=== PATIENT | female | born 1960 | race Caucasian/White ===

== ENCOUNTER → 2019-12-08 | Outpatient (CLI) | payer BC ==
--- NOTE | 2019-12-09 18:47 | ONC ---
[place] [address] RADIATION ONCOLOGY NOTE Name: RUSLAN ARREDONDO Sterling Room: [facility]#: [id number] Admission: 12/08/19 Attend Phys: Wally Harry MD Discharge: Date of : 56 Report #: [id number] THIS REPORT FOR: //name// CC: Wally Padilla MD DATE OF SERVICE: 12/08/2019 [facility] RADIATION ONCOLOGY FOLLOWUP NOTE REFERRING PHYSICIANS: Include Savage Pena MD and Dorinda Mccann MD PRIMARY SITE AND HISTOPATHOLOGY: The patient had a ductal carcinoma in situ of the right breast and she underwent breast conservation therapy. She underwent partial breast radiation with the high dose rate CHRISS applicator to the right lumpectomy bed from 06/08/2018 to 06/15/2018. The patient was prescribed 3400 cGy to the lumpectomy bed in 340 cGy fractions given twice a day using an iridium-192 source. INTERVAL NOTE: The patient denied having any nipple discharge from the right breast. She denied having any nipple discharge from the left breast. She denied having any suspicious palpable masses in the right breast. She denied having any suspicious palpable masses in the left breast. She denied having any upper extremity edema. MEDICATIONS: The patient is taking losartan, hydrochlorothiazide, calcium, and multivitamin. SOCIAL HISTORY: Cigarettes -- The patient does not smoke cigarettes. REVIEW OF SYSTEMS: RESPIRATORY: She was not short of breath. MUSCULOSKELETAL: She had good range of motion in upper extremities. PHYSICAL EXAMINATION: With my nurse, Sarah Kiser, present: VITAL SIGNS: Weight was 344 pounds, blood pressure was 126/74, pulse 61, oxygen saturation was 94%, and respirations 20. LYMPH NODES: She had no cervical, supraclavicular or axillary lymphadenopathy. HEART: Had a regular rate and rhythm without murmur. LUNGS: were clear to auscultation. BREASTS: Right breast had no suspicious palpable masses. Left breast had no suspicious palpable masses. ABDOMEN: Nontender. Spleen was not palpable. [place] [address] RADIATION ONCOLOGY NOTE Name: RUSLAN ARREDONDO Sterling Room: [facility]#: [id number] Admission: 12/08/19 Attend Phys: Wally Harry MD Discharge: Date of : 56 Report #: [id number] EXTREMITIES: Had no clubbing, cyanosis or edema. RADIOLOGIC DATA: The patient had a bilateral mammogram on 11/27/2019 which revealed benign findings and that was at [facility] in [place] where she had the mammogram. ASSESSMENT AND PLAN: 1. History of ductal carcinoma in situ of the right breast- There is no evidence of breast cancer. She was given a requisition for a bilateral mammogram in about 1 year and she was asked to schedule a followup appointment to see me afterwards. 2. Hypertension- The patient takes hydrochlorothiazide and losartan and that is managed by her referring physicians. 3. Calcium level- She takes calcium supplements and that is managed by her referring physicians. Thank you for allowing me to participate in the care of this patient. <ELECTRONICALLY SIGNED> By: Wally Harry MD 12/09/19 [id number] Harry MD /nt
== END ==
LOC: M.RTH 04:13
DX: Z08 Encounter for follow-up examination after completed treatment for malignant neoplasm (principal); Z85.3 Personal history of malignant neoplasm of breast